=== PATIENT | male | born 1995 | race Caucasian/White ===

== ENCOUNTER 2016-05-09 23:52 | Emergency (ER) | payer SELFPAY ==
[~2016-05-09] VITALS: Ht 172.7 cm; Wt 91.5 kg
[~2016-05-09 23:52] MED LIST: HYDR-3498 PO; IBUP-1542 PO; NO MEDS TAKEN
[2016-05-09 23:54] VITALS: Ht 172.7 cm; Wt 91.5 kg
[2016-05-10] MEDS ORDERED: FLUT9.9S NASAL (01:49)
[2016-05-10] MEDS ORDERED: IBUP-1542 PO (01:49)
[2016-05-10] MEDS ORDERED: PSEU30TA38 PO (01:49)
--- NOTE | 2016-05-10 06:50 | ERD ---
DATE OF SERVICE: 05/09/2016 HISTORY OF PRESENT ILLNESS: The patient is a 21-year-old male complaining of sore throat for the la st 4 days. The patient had a cough, a runny nose, no fevers. He took Sudafed yesterday with no all eviation of symptoms. He has not taken medications for pain. Denies any chest pain or shortness of breath. No headaches, no vomiting, no sick contacts. PAST MEDICAL HISTORY: Denies medical problems. ALLERGIES TO MEDICATION: Denies. PAST SURGICAL HISTORY: Denies. SOCIAL HISTORY: Denies. REVIEW OF SYSTEMS: A 12-point review of systems was done. Refer to HPI for positives. All other s ystems negative. PHYSICAL EXAMINATION VITAL SIGNS: Temperature is 98.8, pulse 122, blood pressure is 148/67, respiratory rate 20, O2 satu ration 100% on room air. Pain intensity 9/10. GENERAL: The patient is well-appearing, well-nourished, no acute distress. HEENT: Atraumatic. Conjunctivae are pink. Pupils equal, round, and reactive to light. There is no s cleral icterus. Tympanic membranes clear bilaterally. Oropharynx clear. No nystagmus or photophobia . CHEST: Clear to auscultation bilaterally. There are no rales, wheezes or rhonchi. HEART: Regular rate and rhythm. No murmurs, clicks, rubs or gallops. No S3 or S4. ABDOMEN: Soft, nontender and nondistended. Good bowel sounds. No rebound or guarding. No gross seth tonitis. No gross organomegaly or masses. No Alcala sign or McBurney point tenderness. DIAGNOSIS: Viral pharyngitis. MEDICAL DECISION MAKING: The patient's exam is nonconcerning. I do not feel that there is concern for strep throat. The patient's symptoms are likely associated with viral pharyngitis, and I did no t feel that antibiotics were indicated. DISCHARGE: The patient is discharged stable. The patient is given a prescription for Sudafed, ibup rofen, and Flonase and told to follow up with primary care within 1 to 2 days for reevaluation. The patient was told if symptoms progress or worsen to return to the ER. All other questions answered at time of discharge. Discharge summary given at the time of departure. The patient understood and complied with plan. Dictated By: SPRING JOHNSON for FRIDA CRENSHAW/DIANE Conf#: [id number] DID#: [id number]
== END 2016-05-10 02:00 | disposition home or self-care (01) ==
LOC: FTE 23:52
DX: J02.8 Acute pharyngitis due to other specified organisms (principal); B97.89 Other viral agents as the cause of diseases classified elsewhere
CPT/HCPCS: 99283